=== PATIENT | female | born 1930 | race Caucasian/White ===

== ENCOUNTER 2016-08-21 15:37 | Emergency (ER) | payer MEDICARE, OTHER ==
[~2016-08-21 15:37] MED LIST: AFRIN-DPS15 ML NS; CATAPRES-DPS0.1 MG PO; COUMADIN2 MG PO; FLONASE 0.05% D16 GM NS; HUMALOG100 UNIT/1 SQ; LANTUS100 UNITS/ SQ; LATANOPROST2.5 ML OU; MELATONIN10 M2 PO; MICRO-K DPS10 MEQ PO; OYSTER SHELL C500 MG PO; PRESERVISION A1 EAC2 PO; PROBIOTIC1 EAC1 PO; PROVENTIL HFA6.7 GM IH; ROCALTROL DP0.25 MCG PO; TIMOPTIC 0.5% DP5 ML OU; TOPROL XL DPS100 MG PO; TOUJEO SOL300 UNIT/1 SQ; VITAMIN D-32000 UNI1 PO; [UNRECOGNIZED DRUG - OTHER] PR
--- NOTE | 2016-08-22 13:56 | ER ---
ADMIT: 08/21/2016 RM/LOC: ER [facility] MR#: [id number] [address] [address] JUSTO RODRIGUEZ [address] [place] [address] Emergency Room Report SEX: F AGE: 85 : 1930 DATE: 08/21/2016 The patient is an 85-year-old female with past medical history of hypertension; diagnosis of gout; atrial fibrillation, on Coumadin; and chronic kidney disease, waiting for fistula placement and dialysis who came to the ER with chief complaint of cough and sore throat for the last 3-4 days. Also feeling weak, generalized weakness for the last few days. The patient denied any chest pain, but states she has very mild baseline shortness of breath which has not changed significantly. The patient states she had a dry cough without any sputum. Also she denies any fever. PHYSICAL EXAMINATION: Patient was afebrile in the ER, the patient was not tachypneic. HEAD and NECK: The patient had erythematous oropharynx without any exudate. NECK: No lymphadenopathy. LUNGS: There were mild rhonchi on the right side without any obvious wheezing or crackles. The rest of the physical exam was noncontributory except for nonpitting edema of the bilateral lower extremities. Cardiac sounds are normal without any extra sounds or murmurs. Abdomen is soft. There is no tenderness on the dorsum of the leg. Homans sign is negative bilaterally. The rest of the physical exam is noncontributory. EKG showed atrial fibrillation with rate of 77, the patient is already on Coumadin. Cardiac enzymes are negative. BNP is elevated to 4700, but considering the patient's creatinine of 4 and the previous high elevated BNP during the last 4 years, it is not the only good reason to rule in heart failure. Chest x-ray did not show any pleural effusion, was suggestive of air bronchogram, acute bronchitis. Urine was negative for urinary tract infection. Other than that, the rest of the labs are noncontributory. The patient has an appointment in [address] Pacheco. The patient was given Z- Adriel. The patient already has albuterol inhaler. The patient was advised to follow up with the primary care doctor in the coming days. The patient agreed with the plan. The patient is stable for discharge. Gamal Dawson MD/ zoie JOB #: [id number] CC: Simon Crystal MD, Attending Physician Sarah Rodriguez, Family Physician
[2016-09-09] MEDS ORDERED: AMBIEN DPS5 MG PO (17:55)
[2016-09-09] MEDS ORDERED: PROBIOTIC1 EAC1 PO (17:56)
[2016-09-09] MEDS ORDERED: COUMADIN DPS3 MG PO (17:56)
[2016-09-09] MEDS ORDERED: GLUCOSAMINE/CHO1 TAB PO (17:56)
[2016-09-09] MEDS ORDERED: TIAZAC180 MG PO (17:56)
[2016-09-09] MEDS ORDERED: MYLICON DPS80 MG PO (17:57)
[2016-09-09] MEDS ORDERED: LASIX DPS40 MG PO (17:57)
[2016-09-09] MEDS ORDERED: PRAVACHOL40 MG PO (17:58)
[2016-09-09] MEDS ORDERED: OMEGA-3 DPS1000 MG PO (17:58)
[2016-09-09] MEDS ORDERED: TOPROL XL100 MG PO (17:59)
[2016-09-09] MEDS ORDERED: VITAMIN C500 M1 PO (17:59)
[2016-09-09] MEDS ORDERED: ZYLOPRIM-DPS100 MG PO (17:59)
[2016-09-09] MEDS ORDERED: APRESOLINE-DPS50 MG PO (18:01)
[2016-09-09] MEDS ORDERED: MAALOX DPS30 ML PO (18:01)
[2016-09-09] MEDS ORDERED: TYLENOL DPS325 MG PO (18:02)
[2016-09-09] MEDS ORDERED: DUONEB DPS3 ML IH (18:03)
[2016-09-09] MEDS ORDERED: DULERA 200/58.8 GM IH (18:03)
[2016-09-09] MEDS ORDERED: COSOPT PLUS DPS10 ML OU (18:04)
[2016-09-09] MEDS ORDERED: LEVEMIR100 UNIT/1 SQ (18:04)
[2016-09-09] MEDS ORDERED: XALATAN2.5 ML OU (18:04)
[2016-09-09] MEDS ORDERED: NOVOLOG100 UNIT/2 SQ (18:05)
[2016-09-09] MEDS ORDERED: MIRALAX PACKET17 GM PO (18:05)
[2016-09-09] MEDS ORDERED: HYDROCODONE 5MG/5 MG PO (18:05)
[2016-09-09] MEDS ORDERED: DULCOLAX-DPS10 MG PR (18:06)
[2016-09-22] MEDS ORDERED: APRESOLINE-DPS25 MG PO (13:36)
[2016-09-22] MEDS ORDERED: COUMADIN DPS3 MG PO (13:38)
[2016-09-22] MEDS ORDERED: CULTURELLE1 CAP PO (13:39)
[2016-09-22] MEDS ORDERED: PEPCID DPS20 MG PO (13:41)
[2016-09-22] MEDS ORDERED: THERAPEUTIC MUL1 TAB PO (13:42)
[2016-09-22] MEDS ORDERED: DULERA 200/58.8 GM IH (13:44)
[2016-09-22] MEDS ORDERED: ANUSOL-HC25 MG PR (13:45)
[2016-09-22] MEDS ORDERED: SURFAK DPS240 MG PO (13:47)
[2016-09-22] MEDS ORDERED: NILSTAT PO (13:52)
== END 2016-08-21 18:35 | disposition home or self-care (01) ==
LOC: ER 15:37
DX: J20.9 Acute bronchitis, unspecified (principal); J06.9 Acute upper respiratory infection, unspecified; I10 Essential (primary) hypertension; E11.9 Type 2 diabetes mellitus without complications; Z88.5 Allergy status to narcotic agent; Z79.899 Other long term (current) drug therapy; Z79.01 Long term (current) use of anticoagulants; Z79.4 Long term (current) use of insulin

== ENCOUNTER 2016-09-18 09:40 | Inpatient (IN) | payer MEDICARE, OTHER ==
[~2016-09-18] VITALS: Ht 149.9 cm; Wt 70.1 kg
--- NOTE | ~2016-09-18 | CO ---
ADMIT: 09/18/2016 RM/LOC: 422 [facility] MR#: [id number] [address] [facility] [address] [place] [id number] JORDYN RODRIGUEZ [address] [place] [address] Consultation SEX: F AGE: 86 : 1930 DATE OF CONSULTATION: 09/20/2016 ATTENDING PHYSICIAN: Chao Leonard MD CONSULTING PHYSICIAN: Devon Becerril MD ADDENDUM: You can see full dictated consult from ERIC Patiño. Jordyn is a very pleasant, 86-year-old female who comes in to the hospital with what looks like a partial small bowel obstruction that has now resolved. She is passing gas, not bloated, doing well. They treated her appropriately with an NG tube and that has significantly improved. She does have a history of some type of partial colon resection back in August 23, 2012. She had a colonoscopy and a polypectomy and ended up having a bleed from that and so ultimately ended up having an exploratory laparotomy and right hemicolectomy. At this point, like I said, she is improved and doing well without any other significant issues. She had a total colonoscopy that was back in 2013, so just 3 years ago. Otherwise currently like I said, doing well, improving. Her exam is benign. Abdomen is soft. No pain to palpation. Normal bowel sounds. Nothing else otherwise changed from Chao Kinney's dictation. At this point, obviously we would treat conservatively and watch and follow up on a p.r.n. basis. Devon Becerril MD/ buckyl JOB #: [id number] CC: Chao Leonard MD, Attending Physician Chao Leonard MD, Family Physician
[~2016-09-18 09:40] MED LIST changes: +AMBIEN DPS5 MG PO; +APRESOLINE-DPS50 MG PO; +COSOPT PLUS DPS10 ML OU; +COUMADIN DPS3 MG PO; +DULCOLAX-DPS10 MG PR; +DULERA 200/58.8 GM IH; +DUONEB DPS3 ML IH; +GLUCOSAMINE/CHO1 TAB PO; +HYDROCODONE 5MG/5 MG PO; +LASIX DPS40 MG PO; +LEVEMIR100 UNIT/1 SQ; +MAALOX DPS30 ML PO; +MIRALAX PACKET17 GM PO; +MYLICON DPS80 MG PO; +NOVOLOG100 UNIT/2 SQ; +OMEGA-3 DPS1000 MG PO; +PRAVACHOL40 MG PO; +TIAZAC180 MG PO; +TOPROL XL100 MG PO; +TYLENOL DPS325 MG PO; +VITAMIN C500 M1 PO; +XALATAN2.5 ML OU; +ZYLOPRIM-DPS100 MG PO
--- NOTE | 2016-09-20 13:10 | ER ---
ADMIT: 09/18/2016 RM/LOC: 422 [facility] MR#: [id number] [address] [address] JUSTO RODRIGUEZ [address] [place] [address] Emergency Room Report SEX: F AGE: 86 : 1930 DATE: 09/18/2016 HISTORY OF PRESENT ILLNESS: An 86-year-old female comes to the Emergency Department with abdominal pain, 2 episodes of emesis, and blood in her stool or on the toilet paper, I should say. She is a dialysis dependent, hypertensive, diabetic female. PHYSICAL EXAMINATION: GENERAL: Limited physical exam reveals an 86-year-old, pleasant female no acute distress. She is alert and appropriate. LUNGS: Clear to auscultation. CARDIOVASCULAR: Regular rate and rhythm. ABDOMEN: Grossly distended and tympanic and tender throughout. She does have hemorrhoids. SKIN: Unremarkable. No focal neuro findings. PERTINENT LABS AND STUDIES: CT scan revealed small bowel obstruction. Her INR was 7.78. Her hemoglobin was 9.1, this is stable. Creatinine was elevated; however, she is a dialysis dependent renal failure patient. She is being admitted with SBO and supratherapeutic INR. Simon Crystal MD/ buckyl JOB #: [id number] CC: Chao Leonard MD, Attending Physician Chao Leonard MD, Family Physician
--- NOTE | 2016-09-22 08:22 | DS ---
ADMIT: 09/18/2016 RM/LOC: 422 [facility] MR#: [id number] [address] [address] JUSTO RODRIGUEZ [address] [place] [address] Discharge Summary SEX: F AGE: 86 : 1930 ADMISSION DATE: 09/18/2016 DISCHARGE DATE: 09/21/2016 CONSULTATIONS: 1. Devon Becerril MD. 2. Patricia Pacheco MD. FINAL DIAGNOSES: 1. Small bowel obstruction resolved and surgery. 2. Hemodialysis. 3. Diabetes mellitus. 4. Supratherapeutic INR (international normalized ratio), resolved. Back on anticoagulation. REASON FOR ADMISSION: Please see H and P dictated by Dr. Interiano. However, briefly, admitted with small bowel obstruction. HOSPITAL COURSE: Admitted to the service of [facility] under the care of Dr. Jia Interiano. Her care is transitioned to myself on September 19, 2016. She improves with conservative management. Requests Surgery evaluation. Surgery evaluates the patient. No plan for surgical intervention. INR is now back down and is actually subtherapeutic. She is back on her Coumadin. She is doing very well eating and drinking and moving her bowels. She discharges back to detention facility. DISPOSITION: Detention Facility. DISCHARGE CONDITION: Stable. DISCHARGE MEDICATIONS: See medication reconciliation, it is reviewed and accurate. DISCHARGE INSTRUCTIONS: Discharge to detention facility. Follow up with myself in two weeks' time. Continue hemodialysis. Repeat INR in 48 hours. I discussed the plan with the patient, expressed understanding and was in agreement, had no further questions. Thirty minutes spent on discharge activities of this patient. Chao Leonard MD/ troy JOB #: [id number] CC: Chao Leonard MD, Attending Physician Chao Leonard MD, Family Physician
[2016-09-22] MEDS ORDERED: APRESOLINE-DPS25 MG PO (13:36)
[2016-09-22] MEDS ORDERED: COUMADIN DPS3 MG PO (13:38)
[2016-09-22] MEDS ORDERED: CULTURELLE1 CAP PO (13:39)
[2016-09-22] MEDS ORDERED: PEPCID DPS20 MG PO (13:41)
[2016-09-22] MEDS ORDERED: THERAPEUTIC MUL1 TAB PO (13:42)
[2016-09-22] MEDS ORDERED: DULERA 200/58.8 GM IH (13:44)
[2016-09-22] MEDS ORDERED: ANUSOL-HC25 MG PR (13:45)
[2016-09-22] MEDS ORDERED: SURFAK DPS240 MG PO (13:47)
[2016-09-22] MEDS ORDERED: NILSTAT PO (13:52)
--- NOTE | 2016-09-24 08:47 | CO ---
ADMIT: 09/18/2016 RM/LOC: 422 [facility] MR#: [id number] 2620 [facility] [address] [place] [phone] JUSTO RODRIGUEZ [address] [place] [address] Consultation SEX: F AGE: 86 : 1930 DATE OF CONSULTATION: 09/19/2016 ATTENDING PHYSICIAN: Chao Leonard MD CONSULTING PHYSICIAN: Patricia Pacheco MD REASON FOR CONSULTATION: Chronic kidney disease stage 5, on hemodialysis. HISTORY OF PRESENT ILLNESS: The patient is an 86-year-old female who was recently started on dialysis because of her advanced chronic kidney disease. She presented to the hospital yesterday with a chief complaint of nausea, vomiting, and diarrhea. She reports it started Monday last week, and she had an episode of emesis post dialysis. She proceeded to have diarrhea. Denies any fevers at home. She had another episode of emesis post dialysis on Monday. Her nausea, vomiting, and diarrhea persisted into the weekend and she presented to the hospital for further evaluation yesterday. Upon evaluation, she was noted to have a small bowel obstruction. She is being managed conservatively at this time. Her symptoms have improved. She has an NG-tube in place. This has been clamped. She does not have any diarrhea, but has not had a bowel movement yet either. She feels like she needs to eat and drink now. She otherwise denies any complaints. She reports that dialysis has been going okay. She has an AV graft for access in her left arm. REVIEW OF SYSTEMS: A complete review of systems is negative in detail except as mentioned in history of present illness above. PAST MEDICAL HISTORY: 1. Hypertension. 2. Proteinuric chronic kidney disease stage 5, on hemodialysis on a Monday, Monday, Monday schedule. 3. Atrial fibrillation. 4. Gout. 5. Hyperlipidemia. 6. Vitamin D deficiency. 7. Type 2 diabetes mellitus. 8. CHF. 9. Osteoarthritis. 10.Partial colectomy. 11.Hernia repair. 12.Left arm AV graft placement in August 2016. ALLERGIES: NO KNOWN DRUG ALLERGIES. FAMILY HISTORY: No family history of chronic kidney disease or renal replacement therapy. Father had an [place]. Mother had a stroke. SOCIAL HISTORY: She lives in a care home. No ongoing tobacco, alcohol, or recreational drug use. ADMIT: 09/18/2016 RM/LOC: 422 [facility] MR#: [id number] 2620 [facility] [address] [place] [phone] JUSTO RODRIGUEZ [address] [place] [address] Consultation SEX: F AGE: 86 : 1930 MEDICATIONS: Reviewed in the chart. PHYSICAL EXAMINATION: VITAL SIGNS: Temperature 98.4 Fahrenheit, pulse 90, blood pressure 149/54. GENERAL: She is comfortable. HEENT: Head is nontraumatic and normocephalic. Pale conjunctivae. Dry mucosa. She has an NG-tube in place. CHEST: Clear to auscultation CVS: Regular rhythm. S1, S2 heard. No rubs, murmurs, or gallops. ABDOMEN: Soft, nontender. EXTREMITIES: 1+ lower extremity edema. SKIN: No rash or nodules. NEUROLOGIC: Alert, awake, and oriented x3. Able to move all extremities. PSYCHIATRIC: Affect and memory within normal limits. Access is a left arm AV graft with good thrill and bruit. She also has a right IJ TDC. LABORATORY DATA: Reviewed. BMP with sodium 137, potassium 4.3, creatinine 5.1, CO2 of 26. Hemoglobin 8.9. ASSESSMENT/PLAN: 1. Chronic kidney disease on hemodialysis. 2. Hypertension/edema. 3. Anemia in chronic kidney disease. We will plan for hemodialysis today. I will provide ultrafiltration as her hemodynamics allow. I will verify where she stands with her hemodialysis access use. I will also give her some erythropoietin stimulating agents in order to her address her anemia. Thank you for this consultation and allowing me the opportunity to participate in this patient's care. Please do not hesitate to contact with any questions. Patricia Pacheco MD/ zoie JOB #: [id number] CC: Chao Leonard MD, Attending Physician Chao Leonard MD, Family Physician
--- NOTE | 2016-10-04 09:36 | HP ---
ADMIT: 09/18/2016 RM/LOC: 422 [facility] MR#: [id number] 2620 [facility] [address] [place], [place] [address] [address] [place] [id number] History and Physical SEX: F AGE: 86 : 1930 DATE OF SERVICE: CHIEF COMPLAINT: Nausea and vomiting. HISTORY OF PRESENT ILLNESS: Ms. Mcgowan is a very pleasant 86-year-old female. She has a past medical history significant for history of end-stage renal disease, recently started hemodialysis, atrial fibrillation, hypertension, who presented today with a complaint of abdominal distention, nausea and vomiting. Patient reports that she actually has not been feeling well most of the week. Notes that she has been having some trouble with abdominal distention and some nausea as well as lots of bloating and gas. She reports that after dialysis on Monday, she threw up. She was able to eat a little bit on , and reports that on Monday, she also threw up again, and then yesterday, she just felt very puffy all day with lots of swelling. Notes that she was brought over to the ER today. They did a CT of her abdomen and pelvis, and they found that she had a small bowel obstruction. She reports she has not had any history of small bowel obstruction before. She also reports that she has not had any abdominal surgeries, but on further discussion, it sounds as if she has had a partial colon resection for a polyp previously. Otherwise, the patient reports that nothing else really makes her symptoms better or worse and she has not really had any other associated symptoms. PAST MEDICAL HISTORY: Significant for: 1. Atrial fibrillation, on chronic anticoagulation. 2. Hypertension. 3. Chronic kidney disease, on hemodialysis, which she recently started about 2-1/2 weeks ago. She has a fistula in her left upper arm and a dialysis catheter in her right upper chest. 4. Gout. 5. Hyperlipidemia. 6. Vitamin D deficiency. 7. Diabetes mellitus type 2. 8. Chronic diastolic CHF. 9. She is status post a back surgery x6. 10.Status post colon resection in July of 2012 for GI bleed. 11.Status post hysterectomy in 1980. 12.History of cataract in both eyes. 13.History of glaucoma. 14.Macular degeneration. 15.History of gastric ulcers. 16.History of nocturnal hypoxemia. ALLERGIES: NO KNOWN MEDICAL ALLERGIES. MEDICATIONS: Currently are: 1. Ambien 5 mg p.o. at bedtime. 2. Cardizem 180 p.o. t.i.d. 3. Cosopt eye drops. 4. Coumadin. ADMIT: 09/18/2016 RM/LOC: 422 [facility] MR#: [id number] [address] [address] [place] [address] History and Physical SEX: F AGE: 86 : 1930 5. Culturelle. 6. Dulcolax suppository. 7. Dulera 200/50 two puffs b.i.d. 8. DuoNeb four times daily. 9. Glucosamine/chondroitin. 10.Hydralazine 75 mg p.o. t.i.d. 11.Hydrocortisone suppository. 12.Lasix 40 mg p.o. daily. 13.Levemir 5 units daily. 14.Lortab p.r.n. 15.Maalox p.r.n. 16.MiraLAX p.r.n. 17.NovoLog sliding scale. 18.Nystatin Swish and Swallow. 19.Fanwood-3 pills. 20.Pravachol 40 mg two tablets p.o. daily. 21.Questran. 22.Simethicone. 23.Therapeutic multivitamin. 24.Toprol-XL 200 mg p.o. b.i.d. 25.Tylenol. 26.Vitamin C 500 mg p.o. daily. 27.Xalatan eye drops. 28.Zofran. 29.Allopurinol 100 mg p.o. daily. FAMILY HISTORY: Positive for mother with CVA, dad with an [place] in his 80s, and brother with a history of diabetes. SOCIAL HISTORY: She currently lives at [facility] with a plan to move to an assisted living. She is a retired nurse's aide. She does not drink or use any significant alcohol. REVIEW OF SYSTEMS: Obtained, was otherwise essentially negative. PHYSICAL EXAMINATION: GENERAL: She is alert and oriented. She is in no apparent distress. She is a little pale. HEENT: Pupils are equal, round, reactive. Oropharynx, she has dry mucous membranes. NECK: Supple. HEART: Normal rate with an irregularly irregular rhythm. LUNGS: Have diminished breath sounds. ABDOMEN: Quite distended. High-pitched tinkling bowel sounds. EXTREMITIES: Have no evidence of edema. Her left upper extremity has some ADMIT: 09/18/2016 RM/LOC: 422 [facility] MR#: [id number] [address] [place] [phone] JUSTO MCGOWAN [address] [place] [address] History and Physical SEX: F AGE: 86 : 1930 ecchymosis in a fistula that is intact. Her right upper chest has a line. SKIN: Dry. NEUROLOGICAL: She is moving upper and lower extremities symmetrically. ASSESSMENT AND PLAN: 1. Small bowel obstruction. At this time, we will go ahead and place an NG to low intermittent suction. Keep her n.p.o. and just check an x-ray in the morning. 2. Diabetes mellitus. We will do some Accu-Cheks q.4 hours and low-dose sliding scale. 3. End-stage renal disease, on hemodialysis. We will notify Nephrology. 4. Dehydration. We will give her very gentle hydration. Jia Interiano MD/ zoie JOB #: [id number] CC: Chao Leonard MD, Attending Physician Chao Leonard MD, Family Physician
--- NOTE | 2016-10-22 12:06 | CO ---
ADMIT: 09/18/2016 RM/LOC: 422 [facility] MR#: [id number] [address] [address] JORDYN RODRIGUEZ Jaya [address] [place] [address] Consultation SEX: F AGE: 86 : 1930 DATE OF CONSULTATION: 09/20/2016 ATTENDING PHYSICIAN: Chao Leonard MD CONSULTING PHYSICIAN: Devon Becerril MD REASON FOR CONSULTATION: Small bowel obstruction. HISTORY OF PRESENT ILLNESS: Jordyn is a very pleasant, 86-year-old female, who is status post right hemicolectomy for a cecal polyp not amenable to colonoscopic polypectomy, who presents to the hospital with about a 1-week history of diarrhea and a 2-day history of abdominal distention and nausea. She denies ever having episodes like this before. She denies having any dark or bloody stools or hematemesis. She believes her symptoms started after receiving dialysis. Because of her symptoms, a CAT scan showed concerns for small bowel obstruction. However, just today, the patient started having bowel movements and passing flatus. She had an NG placed while in the hospital and that has now been pulled. Her symptoms have currently resolved. PAST MEDICAL HISTORY: Significant for: 1. Atrial fibrillation. 2. Hypertension. 3. CKD. 4. Gout. 5. Hyperlipidemia. 6. Vitamin D deficiency. 7. Type 2 diabetes. 8. CHF. 9. Glaucoma. 10.Macular degeneration. 11.Cataracts. PAST SURGICAL HISTORY: Please see above. ALLERGIES: NO KNOWN DRUG ALLERGIES. MEDICATIONS: Well documented in chart. FAMILY HISTORY: Noncontributory. SOCIAL HISTORY: The patient denies any tobacco or alcohol use. REVIEW OF SYSTEMS: CONSTITUTIONAL: The patient denies any fever, chills, or night sweats. The rest of comprehensive 10-point review of systems was performed and all other systems are negative. PHYSICAL EXAMINATION: GENERAL: The patient is in no acute distress. She is alert and oriented. HEENT: Head is normocephalic and atraumatic. EOMS are intact. Conjunctivae ADMIT: 09/18/2016 RM/LOC: 422 [facility] MR#: [id number] 2620 [facility] [address] [place], [place] [address] [place] [address] Consultation SEX: F AGE: 86 : 1930 free of icterus, erythema, pallor. Pinnae, free of deformities. Nose, midline. No tracheal deviation. NECK: Supple. SKIN: Negative for jaundice, clubbing, edema, pallor, or cyanosis. LUNGS: Clear to auscultation bilaterally. HEART: Distal pulses intact. ABDOMEN: Soft, nondistended, nontender. NEURO: Grossly intact. ASSESSMENT: Small bowel obstruction, resolving. PLAN: I discussed in great detail about small-bowel obstruction, its causes, and treatment plan. At this time, given that her symptoms are resolving, no surgery is warranted. However, we will be happy to assist her with any other needs she needs while in the hospital. Her questions were answered. She is in agreement of this plan and I offered to answer any more questions she may have at later time at our clinic. Thanks for the consultation of this patient. ERIC Patiño / Devon Becerril MD / zoie JOB #: [id number] CC: Chao Leonard MD, Attending Physician Chao Leonard MD, Family Physician
== END 2016-09-21 15:12 | DRG 388 ==
LOC: ER 09:40 → 4PCU 11:15
PROVIDERS: ADMIT Internal Medicine
PROC: 5A1D60Z (ICD-10-PCS; principal; 2016-09-19)
DX: K56.60 Unspecified intestinal obstruction (principal); N18.6 End stage renal disease; I13.2 Hypertensive heart and chronic kidney disease with heart failure and with stage 5 chronic kidney disease, or end stage renal disease; E86.0 Dehydration; I48.91 Unspecified atrial fibrillation; E11.22 Type 2 diabetes mellitus with diabetic chronic kidney disease; D63.1 Anemia in chronic kidney disease; M10.9 Gout, unspecified; E78.5 Hyperlipidemia, unspecified; E55.9 Vitamin D deficiency, unspecified; I50.32 Chronic diastolic (congestive) heart failure; R79.1 Abnormal coagulation profile; H35.30 Unspecified macular degeneration; R09.02 Hypoxemia; M19.90 Unspecified osteoarthritis, unspecified site; H40.9 Unspecified glaucoma; Z99.2 Dependence on renal dialysis; Z79.01 Long term (current) use of anticoagulants; Z87.11 Personal history of peptic ulcer disease; Z79.4 Long term (current) use of insulin; Z82.49 Family history of ischemic heart disease and other diseases of the circulatory system

== ENCOUNTER → 2016-09-27 | Outpatient (CLI) | payer MEDICARE, OTHER ==
[~2016-09-27] MED LIST changes: +ANUSOL-HC25 MG PR; +APRESOLINE-DPS25 MG PO; +CULTURELLE1 CAP PO; +NILSTAT PO; +PEPCID DPS20 MG PO; +SURFAK DPS240 MG PO; +THERAPEUTIC MUL1 TAB PO
== END | disposition home or self-care (01) ==
LOC: RAD.S 09:00
PROC: 05PYX3Z Removal of Infusion Device from Upper Vein, External Approach (ICD-10-PCS; principal; 2016-09-27)
DX: N18.6 End stage renal disease (principal)